=== PATIENT | male | born 1985 | race Two or more races ===

== ENCOUNTER 2017-05-12 19:56 | Emergency (ER) | payer SELFPAY ==
--- NOTE | 2017-05-12 21:08 | ED PDOC ---
Arrival/HPI - General Chief Complaint: Psychiatric Evaluation Time Seen by Provider: 05/12/17 20:13 Historian: Patient - History of Present Illness Narrative History of Present Illness (Text): 05/12/17 20:35 Ifeanyi Starkey is a 32 year old male, whose past medical history includes depression, and alcohol abuse, who presents to the ED brought in by EMS and [facility] for alcohol intoxication and erratic behavior tonight. Patient states he is depressed and patient described hearing voices earlier, but denies any currently. Patient with tangential speech. Patient denies any drug use, fever, chills, chest pain, shortness of breath, nausea, vomiting, diarrhea, or any other complaints. Time/Duration: Other (tonight) Symptom Onset: Gradual Symptom Course: Unchanged Activities at Onset: Light Past Medical History - Provider Review Nursing Documentation Reviewed: Yes - Psychiatric Hx Substance Use: Yes Family/Social History - Physician Review Nursing Documentation Reviewed: Yes Family/Social History: Unknown Family HX Smoking Status: Never Smoked Hx Alcohol Use: Yes Frequency of alcohol use: Daily Hx Substance Use: Yes Allergies/Home Meds Allergies/Adverse Reactions: Allergies No Known Allergies Allergy (Unverified 05/12/17 20:36) Home Medications: Home Meds Medication Instructions Recorded Confirmed Escitalopram [Lexapro] 10 mg PO DAILY 05/12/17 05/12/17 OLANZapine [ZyPREXA] 10 mg PO HS 05/12/17 05/12/17 Risperidone [Risperdal] 3 mg PO HS 05/12/17 05/12/17 Review of Systems - Physician Review All systems were reviewed & negative as marked: Yes - Review of Systems Constitutional: Normal. absent: Fevers Eyes: Normal ENT: Normal Respiratory: Normal. absent: SOB, Cough Cardiovascular: Normal. absent: Chest Pain Gastrointestinal: Normal. absent: Abdominal Pain, Diarrhea, Nausea, Vomiting Genitourinary Male: Normal. absent: Dysuria, Frequency, Hematuria, Urinary Output Changes Musculoskeletal: Normal. absent: Back Pain, Neck Pain Skin: Normal. absent: Rash Neurological: Normal. absent: Headache, Dizziness Endocrine: Normal Hemo/Lymphatic: Normal Psychiatric: Depression Physical Exam Vital Signs Reviewed: Yes Vital Signs Temp Pulse Resp BP Pulse Ox 05/13/17 03:01 94 H 16 107/66 96 05/13/17 01:12 99 H 16 111/62 95 05/12/17 20:13 98 F 90 20 120/82 98 Temperature: Afebrile Blood Pressure: Normal Pulse: Regular Respiratory Rate: Normal Appearance: Positive for: Well-Appearing, Non-Toxic, Comfortable Pain Distress: None Mental Status: Positive for: Agitated - Systems Exam Head: Present: Atraumatic, Normocephalic Pupils: Present: PERRL Extroacular Muscles: Present: EOMI Conjunctiva: Present: Normal Mouth: Present: Moist Mucous Membranes Neck: Present: Normal Range of Motion Respiratory/Chest: Present: Clear to Auscultation, Good Air Exchange. No: Respiratory Distress, Accessory Muscle Use Cardiovascular: Present: Regular Rate and Rhythm, Normal S1, S2. No: Murmurs Abdomen: Present: Normal Bowel Sounds. No: Tenderness, Distention, Peritoneal Signs Back: Present: Normal Inspection Upper Extremity: Present: Normal Inspection. No: Cyanosis, Edema Lower Extremity: Present: Normal Inspection. No: Edema Neurological: Present: GCS=15, CN II-XII Intact, Speech Normal, Motor Func Grossly Intact, Normal Sensory Function Skin: Present: Warm, Dry, Normal Color. No: Rashes Psychiatric: Present: Alert, Oriented x 3, Agitated Medical Decision Making ED Course and Treatment: 05/12/17 20:35 Impression: 32 year old male brought in for alcohol intoxication and erratic behavior tonight. Plan: -- EKG -- CXR -- Labs, alcohol level -- Urinalysis, urine drug screen -- Ativan -- Haldol -- Reassess and disposition Progress Notes: Pt uncooperative in ER. Polic present at bedside. Pt attempting to leave ER. Pt required restrain and sedation for protection from self-harm. 05/13/17 02:58 Reviewed EKG, NSR at [address]-segment elevations or depressions, no T-wave inversions, normal intervals. Reviewed radiology, CXR shows no acute processes. 05/13/17 06:35 Pt. awake alert sober was seen and evaluated by DELILAH Powers.Discussed with psychiatrist pt. was cleared for discharge and follow up out patient. - Lab Interpretations Lab Results: 05/12/17 23:22 05/12/17 23:22 Lab Results 05/12/17 23:35: Urine Opiates Screen Negative, Urine Methadone Screen Negative, Ur Barbiturates Screen Negative, Ur Phencyclidine Scrn Negative, Ur Amphetamines Screen Negative, U Benzodiazepines Scrn Negative, U Oth Cocaine Metabols Negative, U Cannabinoids Screen Negative 05/12/17 23:35: Urine Color Yellow, Urine Appearance Clear, Urine pH 6.0, Ur Specific [place] 1.010, Urine Protein Negative, Urine Glucose (UA) Negative, Urine Ketones Negative, Urine Blood Negative, Urine Nitrate Negative, Urine Bilirubin Negative, Urine Urobilinogen 0.2, Ur Leukocyte Esterase Negative 05/12/17 23:22: Alcohol, Quantitative 217 H 05/12/17 23:22: Salicylates < 1 L, Acetaminophen < 10.0 L 05/12/17 23:22: Sodium 144, Potassium 4.2, Chloride 108 H, Carbon Dioxide 22, Anion Gap 19, BUN 8, Creatinine 1.0, Est GFR ( Amer) > 60, Est GFR (Non- Af Amer) > 60, Random Glucose 113 H, Calcium 9.6, Total Bilirubin 0.8, AST 44, ALT 90 H, Alkaline Phosphatase 54, Total Protein 7.7, Albumin 4.6, Globulin 3.0 , Albumin/Globulin Ratio 1.5 05/12/17 23:22: WBC 8.1, RBC 4.85, Hgb 15.5, Hct 43.1, MCV 88.9, MCH 32.0, MCHC 36.0, RDW 12.5, Plt Count 218, MPV 9.6, Gran % 65.4, Lymph % (Auto) 28.2, [place] % (Auto) 5.6, Eos % (Auto) 0.6 L, Baso % (Auto) 0.2, Gran # 5.26, Lymph # 2.3, Holmes # 0.5, Eos # 0.1, Baso # 0.02 I have reviewed the lab results: Yes - RAD Interpretation Radiology Orders: 05/12/17 21:32 CHEST PORTABLE [RAD] Stat Bulldozer Engineer: ED Physician - EKG Interpretation Interpreted by ED Physician: Yes Type: 12 lead EKG - Medication Orders Current Medication Orders: Discontinued Medications Haloperidol Lactate (Haldol) 5 mg IM STAT STA PRN Reason: Protocol Stop: 05/12/17 20:37 Last Admin: 05/12/17 20:49 Dose: 5 mg IM Administration Charges Document 05/12/17 20:49 CNR (Rec: 05/12/17 20:49 CNR [id number]) Injection Site MAR Injection Site Left Vastus Lateralis Charges for Administration # of IM Administrations 1 Lorazepam (Ativan) 2 mg IM ONCE ONE Stop: 05/12/17 20:37 Last Admin: 05/12/17 20:49 Dose: 2 mg IM Administration Charges Document 05/12/17 20:49 CNR (Rec: 05/12/17 20:49 CNR [id number]) Injection Site MAR Injection Site Left Vastus Lateralis Charges for Administration # of IM Administrations 1 - Scribe Statement Alem Bowling Provider Scribe Attestation: All medical record entries made by the Scribe were at my direction and personally dictated by me. I have reviewed the chart and agree that the record accurately reflects my personal performance of the history, physical exam, medical decision making, and the department course for this patient. I have also personally directed, reviewed, and agree with the discharge instructions and disposition. Disposition/Present on Arrival - Present on Arrival Any Indicators Present on Arrival: No History of DVT/PE: No History of Uncontrolled Diabetes: No Urinary Catheter: No History of Decub. Ulcer: No History Surgical Site Infection Following: None - Disposition Have Diagnosis and Disposition been Completed?: Yes Diagnosis: Alcohol intoxication, Bipolar disorder Disposition: HOME/ ROUTINE Disposition Time: 06:37 Patient Plan: Discharge Patient Problems: Current Active Problems Problem Status Onset Alcohol intoxication Acute Bipolar disorder Acute Condition: GOOD Discharge Instructions (ExitCare): Alcohol Intoxication (ED) Referrals: [facility] [Outside] - Follow up with primary Alcoholics Anonymous [Outside] - Follow up with primary Forms: [employer] (Sudanese)
[2017-05-12 23:41] LABS: BASO # 0.02 K/mm3 (0.0-2.0); BASO % 0.2 % (0.0-3.0); EOS # 0.1 (0.0-0.7); EOS % 0.6 % (1.5-5.0); GRAN # 5.26 (1.4-6.5); GRAN % 65.4 % (50.0-68.0); HEMATOCRIT 43.1 % (42.0-52.0); LYMPH # 2.3 (1.2-3.4); LYMPH % 28.2 % (22.0-35.0); MEAN CELL VOLUME 88.9 fl (80.0-105.0); MEAN PLATELET VOLUME 9.6 fl (7.0-11.0); MONO # 0.5 (0.1-0.6); MONO % 5.6 % (1.0-6.0); RED CELL DISTRIBUTION WIDTH 12.5 % (11.5-14.5); WHITE BLOOD COUNT 8.1 10^3/ul (4.5-11.0)
[2017-05-12 23:53] LABS: ALB/GLOB RATIO 1.5 (1.1-1.8); ALKALINE PHOSPHATASE 54 U/L (38-126); ALT/SGPT 90 U/L (7-56); AST/SGOT 44 U/L (17-59); BILIRUBIN,TOTAL 0.8 mg/dL (0.2-1.3); BLOOD UREA NITROGEN 8 mg/dL (7-21); CALCIUM 9.6 mg/dL (8.4-10.5); CARBON DIOXIDE 22 mmol/L (21-33); CHLORIDE 108 mmol/L (98-107); GFR AFRICAN-AMERICAN > 60; GLUCOSE,RANDOM 113 mg/dL (70-110); POTASSIUM 4.2 mmol/L (3.6-5.0); SODIUM 144 mmol/L (132-148); TOTAL PROTEIN 7.7 g/dL (5.8-8.3)
[2017-05-13 00:03] LABS: URINE BILIRUBIN NEGATIVE (NEGATIVE); URINE BLOOD NEGATIVE (NEGATIVE); URINE GLUCOSE (UA) NEGATIVE (NEGATIVE); URINE KETONE NEGATIVE (NEGATIVE); URINE LEUKOCYTE ESTERASE NEGATIVE Leu/uL (NEGATIVE); URINE PROTEIN NEGATIVE mg/dL (<30 mg/dL); URINE UROBILINOGEN 0.2 E.U./dL (<1 E.U./dL)
[2017-05-13 00:09] LABS: URINE APPEARANCE CLEAR (CLEAR); URINE COLOR YELLOW (YELLOW)
[2017-05-13 01:11] VITALS: TEMP 98
[2017-05-13 01:12] VITALS: RESP 16
[2017-05-13 06:49] VITALS: BP 110/70; PULSE 89; O2SAT 98
--- NOTE | 2017-05-13 08:37 | RAD ---
HISTORY: medical clearance COMPARISON: No prior. FINDINGS: LUNGS: No active pulmonary disease. PLEURA: No significant pleural effusion identified, no pneumothorax apparent. CARDIOVASCULAR: Normal. OSSEOUS STRUCTURES: No significant abnormalities. VISUALIZED UPPER ABDOMEN: Normal. OTHER FINDINGS: None. IMPRESSION: No active disease.
--- NOTE | 2017-05-13 22:07 | CARD ---
APPROVED REPORT EKG Measurement Heart [id number] <Conclusion> Normal sinus rhythm Early repolarization Normal ECG
== END 2017-05-13 06:49 | disposition home or self-care (01) ==
LOC: ED 19:56
DX: F10.129 Alcohol abuse with intoxication, unspecified (principal); F31.9 Bipolar disorder, unspecified
CPT/HCPCS: 71010; 80053; 81003; 85025; 90791; 93005; 96372; 99285; G0480; J1630; J2060